=== PATIENT | male | born 1980 | race Caucasian/White ===

== ENCOUNTER → 2017-08-24 | Outpatient (CLI) | payer OTHER ==
[2017-08-24 17:38] LABS: BASO % 0.3 %; BASO ABS # 0.02 K/uL (0-0.2); EOS ABS # 0.12 K/uL (0-0.5); HEMATOCRIT 43.8 % (42-52); HEMOGLOBIN 14.8 g/dL (14.0-18.0); LYMPH % 33.7 %; LYMPH ABS # 2.07 K/uL (1.2-3.4); MEAN CELL VOLUME 94.4 fL (80-100); MEAN CORPUSCULAR HEMOGLOBIN 31.9 pg (25-34); MEAN CORPUSCULAR HGB CONC 33.8 g/dl (32-36); MEAN PLATELET VOLUME 10.6 fL (7.4-10.4); MONO % 7.5 %; MONO ABS # 0.46 K/uL (0.11-0.59); NEUT % 56.5 %; NEUT ABS # 3.48 K/uL (1.4-6.5); PLATELET COUNT 231 K/uL (130-400); RED CELL DISTRIBUTION WIDTH CV 12.9 % (11.5-14.5); RED CELL DISTRIBUTION WIDTH SD 44.1 fL (36.4-46.3); WHITE BLOOD COUNT 6.15 K/uL (4.8-10.8)
[2017-08-24 17:56] LABS: ALBUMIN 4.1 gm/dl (3.4-5.0); ALT/SGPT 42 U/L (12-78); AST/SGOT 30 U/L (15-37); BLOOD UREA NITROGEN 19 mg/dl (7-18); CALCIUM 9.4 mg/dl (8.5-10.1); CARBON DIOXIDE 29 mmol/L (21-32); CHOLESTEROL 188 mg/dl (0-200); CREATININE 1.15 mg/dl (0.60-1.40); GLUCOSE 98 mg/dl (70-99); POTASSIUM 4.6 mmol/L (3.5-5.1); SODIUM 138 mmol/L (136-145)
[2017-08-24 17:57] LABS: ALKALINE PHOSPHATASE 83 U/L (45-117); LDL CHOLESTEROL CALCULATED 122 mg/dl
== END | disposition home or self-care (01) ==
LOC: C.LABBFT 15:27
PROVIDERS: ATTEND Internal Medicine
DX: Z13.220 Encounter for screening for lipoid disorders (principal); Z13.6 Encounter for screening for cardiovascular disorders

== ENCOUNTER 2017-10-30 14:25 | Emergency (ER) | payer OTHER ==
[~2017-10-30] VITALS: Ht 177.8 cm; Wt 103.0 kg
[2017-10-30 14:35] VITALS: TEMP 36.6; Ht 177.8 cm; Wt 103.0 kg
[2017-10-30] MEDS ORDERED: XYLOCAINE 1%/SOD BICARB 20 ML VIAL INFIL ONE (15:00)
--- NOTE | 2017-10-30 15:07 | DIAGNOSTIC IMAGING REPORT ---
R FINGER(S) MIN 2 VIEWS ROUTINE HISTORY: 37 years-old Male RIGHT MIDDLE, NAIL FOREIGN BODY foreign body of the third finger. Acute right third finger pain COMPARISON: None available TECHNIQUE: 3 views of the right third finger FINDINGS: There is a 7.5 cm radiopaque nail within the dorsal soft tissues of the third finger at the level of the distal aspect proximal phalanx. No bony involvement, acute fracture or dislocation identified. Mild associated soft tissue swelling. The remaining imaged fingers and hand appear unremarkable. IMPRESSION: 7.5 cm radiopaque nail within the dorsal soft tissues of the third finger at the level of the distal aspect proximal phalanx without bony involvement, acute fracture or dislocation identified. The above report was generated using voice recognition software. It may contain grammatical, syntax or spelling errors. Electronically signed by: Forrest Perez M.D. 10/30/2017 3:06 PM Dictated Date/Time: 10/30/2017 3:04 PM
[2017-10-30] MEDS ORDERED: PERCOCET HOME PACK PO ONE (15:30)
[2017-10-30] MEDS ORDERED: DIPHTHERIA/TETANUS/PERTUSSIS 0.5 ML SYR/VIAL IM. ONE (15:30)
[2017-10-30] MEDS ORDERED: CEPH500C2 PO (15:33)
--- NOTE | 2017-10-30 15:35 | EMERGENCY ROOM VISIT NOTE ---
ED Visit Note First contact with patient: 14:43 CHIEF COMPLAINT: Nail in the right 3rd finger Patient is a [id number] 37-year-old male who presents emergency department for evaluation of a nail foreign body in the back of his right third finger. He was using a nail gun, when he accidentally shot the nail through the back of his finger, he was wearing a work glove at the time of the injury. He did not attempt to remove it. He notes a throbbing pain at the site of the injury that is worse with any attempts at movement of the finger. He rates his discomfort a 7/10. Bleeding is controlled. PMH: Electronic medical records are reviewed and summarized as above/below. See Problem List. Patient is unsure of his last tetanus vaccination. REVIEW OF SYSTEMS: Review of systems as per HPI. All other systems reviewed were negative. At least 6 systems reviewed. SOCIAL HISTORY: Patient lives at home with his and children. Employed. Non-smoker.. PHYSICAL EXAM: Vital Signs: Reviewed Nurse's notes. CONSTITUTIONAL: Patient is a well-appearing 37-year-old male who is awake and alert and in no acute distress. INTEGUMENTARY: The patient has a small puncture wound on the dorsal aspect of the right third finger on the radial aspect of the finger just proximal to the PIP joint, with nail embedded. The tip of the nail can be felt over the ulnar aspect of the finger, but the wound is not through and through. EMERGENCY DEPARTMENT COURSE: X-rays of the right second finger were obtained, foreign body was noted, without evidence for bony involvement. After Betadine cleansing and lidocaine anesthesia a small incision was made in the skin with a number 11 scalpel blade at the entrance point. The nail was then grasped and removed. The area was then re-scrubbed with Betadine and irrigated copiously using normal saline solution. I did use an 18-gauge Angiocath to irrigate the tract of the nail. After foreign body removal, the patient was able to flex and extend his finger fully. Bacitracin and a bandage applied. Patient's tetanus was updated. He will be placed on Keflex prophylactically, and was educated on the signs or symptoms of infection for which he should seek immediate medical attention, particularly given the proximity to the joint and the extensor tendon structures in the finger. He was given a Percocet home pack to use for pain. He was placed in a metal finger splint for discomfort. Differential diagnoses included fracture, joint injury, tendon disruption, foreign body, among others. Medication reconciliation: I attest that I have personally reviewed the patient' s current medication list. Blood pressure screening : Patient was found to have normal blood pressure on screening and does not require follow-up. R FINGER(S) MIN 2 VIEWS ROUTINE HISTORY: 37 years-old Male RIGHT MIDDLE, NAIL FOREIGN BODY foreign body of the third finger. Acute right third finger pain COMPARISON: None available TECHNIQUE: 3 views of the right third finger FINDINGS: There is a 7.5 cm radiopaque nail within the dorsal soft tissues of the third finger at the level of the distal aspect proximal phalanx. No bony involvement, acute fracture or dislocation identified. Mild associated soft tissue swelling. The remaining imaged fingers and hand appear unremarkable. IMPRESSION: 7.5 cm radiopaque nail within the dorsal soft tissues of the third finger at the level of the distal aspect proximal phalanx without bony involvement, acute fracture or dislocation identified. Current/Historical Medications Scheduled Cephalexin Monohydrate (Keflex), 500 MG PO TID Allergies Coded Allergies: No Known Allergies (Unverified , 10/30/17) Vital Signs Date Time Temp Pulse Resp B/P (MAP) Pulse Ox O2 Delivery O2 Flow Rate FiO2 10/30/17 15:57 94 18 131/98 98 10/30/17 14:35 36.6 74 20 134/91 98 Room Air Medications Administered Medications (Trade) Dose Ordered Sig/Teresa Route Start Time Stop Time Status Last Admin Dose Admin Diphtheria/ Pertussis/Tetanus Vacc (Adacel Inj) 0.5 ml ONCE ONCE IM. 10/30/17 15:30 10/30/17 15:31 DC 10/30/17 15:50 0.5 ML Oxycodone/ Acetaminophen (Percocet 5/ 325MG Home Pack) 1 homepack UD ONCE PO 10/30/17 15:30 10/30/17 15:31 DC 10/30/17 15:51 1 HOMEPACK Departure Information Impression Primary Impression: Foreign body finger Prescriptions Cephalexin Monohydrate (KEFLEX) 500 Mg Cap 500 MG PO TID, #15 CAP Prov: Yazmin Benson PA 10/30/17 Referrals No Doctor, Assigned (PCP) Patient Instructions My [facility] Additional Instructions Clean wound daily with mild soap and water, use an antibiotic ointment for 3-4 days, then let wound dry. Seek immediate medical attention for any signs of infection (increasing redness , swelling, drainage). Ice and elevate for swelling and pain. Wear the metal finger splint for support , may remove for wound care and gentle range of motion. Ibuprofen(Motrin, Advil) may be used for fever or pain. Use 600mg every six hours as needed. Take with food. Avoid using more than 2400mg in a 24 hour period. Do not use 2400mg per day for more than three consecutive days without physician direction. Prolonged inappropriate use can lead to stomach upset or ulcers. (AND/OR) Acetaminophen(Tylenol) may be used for fever or pain. Use 1000mg every six hours as needed. Avoid using more than 3000mg in a 24 hour period. Cephalexin(Keflex) 500mg: Take one pill 3 times daily for 5 days to prevent infection. All antibiotics can cause diarrhea. If this occurs and you feel worse or it does not resolve in 1-2 days follow up with your doctor or return to the Emergency Department as this could be signs of serious underlying problems. Any medication can cause an allergic reaction, stop the pills immediately and return to the ER for rash, hives, breathing difficulties, or swelling. Percocet 5/325 mg: Take 1-2 pills every four hours for breakthrough pain. Avoid alcohol, operating machinery or dangerous equipment, working on ladders or roofs, DRIVING, or situations where being under the influence may be dangerous. It is recommended to use an [id number] stool softener such as Colace, 100mg twice daily while taking this medication to avoid constipation.
[2017-10-30 15:57] VITALS: BP 131/98; PULSE 94; O2SAT 98
== END 2017-10-30 16:01 | disposition home or self-care (01) ==
LOC: C.EDB 14:27 → C.EDD 16:01
DX: S60.452A Superficial foreign body of right middle finger, initial encounter (principal); W29.4XXA Contact with nail gun, initial encounter; Z23 Encounter for immunization